=== PATIENT | female | born 1945 | race Caucasian/White ===

== ENCOUNTER → 2017-09-04 | Outpatient (CLI) | payer MEDICARE, BC ==
[~2017-09-04] MED LIST: ADVAIR HFA 230M12 GM INH; ALBUTEROL2.5 MG/31 INH; ASPIR 8181 M1 PO; FLONASE 0.05%50 MCG NASAL; IRON325 PO; LOVASTATIN 20 M20 MG PO; METFORMIN HCL500 MG PO; OMEPRAZOLE 20 M20 M1 PO; OXYGEN MISCELL; PRINIVIL5 MG PO; VENTOLIN HFA 1818 GM INH
--- NOTE | 2017-09-04 14:47 | 2DMMODE ---
[place] [address] 2 D/M-MODE ECHOCARDIOGRAM Name: PATSY WILLARD Room: [facility]#: [id number] Admission: 09/04/17 Attend Phys: Selene Barbosa MD Discharge: Date of : 47 Date of Service: 09/04/17 1447 Report #: [id number] THIS REPORT FOR: //name// APPROVED REPORT Study performed: 09/04/2017 10:07:27 EXAM: Comprehensive 2D, Doppler, and color-flow Echocardiogram Patient Location: Out-Patient Status: routine BSA: 2.05 HR: 96 bpm BP: 115/75 mmHg Other Information Study Quality: Good Indications COPD Dyspnea 2D Dimensions LVEF(%): 74.75 (>50%) IVSd: 6.61 (7-11mm) LVOT Diam: 20.13 (18-24mm) LVDd: 49.53 mm PWd: 10.45 (7-11mm) Ascending Ao: 32.08 (22-36mm) LVDs: 27.87 (25-40mm) Aortic Root: 29.77 mm Kelly's LVEF: 74.75 % Volumes Left Atrial Volume (Systole) LA ESV Index: 25.90 mL/m2 Aortic Valve AoV Peak Fernando.: 1.49 m/s AO Peak Gr.: 8.89 mmHg LVOT Max P.19 mmHg AO Mean Gr.: 5.45 mmHg LVOT Mean P.22 mmHg LVOT Max V: 0.74 m/s AO V2 VTI: 31.94 cm LVOT Mean V: 0.52 m/s TORY (VTI): 1.70 cm2 LVOT V1 VTI: 17.10 cm Mitral Valve E/A Ratio: 0.76 [place] [address] 2 D/M-MODE ECHOCARDIOGRAM Name: PATSY WILLARD Room: [facility]#: [id number] Admission: 09/04/17 Attend Phys: Selene Barbosa MD Discharge: Date of : 47 Date of Service: 09/04/17 1447 Report #: [id number] MV Decel. Time: 256.92 ms MV E Max Fernando.: 0.72 m/s MV PHT: 74.51 ms MVA (PHT): 2.95 cm2 TDI E/Lateral E': 6.00 E/Medial E': 7.20 Medial E' Fernando.: 0.10 m/s Lateral E' Fernando.: 0.12 m/s Pulmonary Valve PV Peak Fernando.: 1.08 m/s PV Peak Gr.: 4.68 mmHg Tricuspid Valve RAP Estimate: 5.00 mmHg TR Peak Gr.: 24.38 mmHg RVSP: 29.38 mmHg PA Pressure: 29.38 mmHg Left Ventricle The left ventricle is normal size. Regional wall motion is not well visualized but grossly normal. Mild concentric left ventricular hypertrophy. Left ventricular systolic function is normal. The left ventricular ejection fraction is within the normal range. LVEF is 50-55%. Grade I - abnormal relaxation pattern. Right Ventricle The right ventricle is normal size. The right ventricular systolic function is normal. Atria The left atrium size is normal. The right atrium size is normal. Aortic Valve Aortic valve leaflets are mildly thickened. Aortic valve is not well visualized. No aortic regurgitation is present. Mild aortic stenosis. Mitral Valve The mitral valve is normal in structure. There is no mitral valve regurgitation noted. No evidence of mitral valve stenosis. Tricuspid Valve The tricuspid valve is normal in structure. Mild [place] [address] 2 D/M-MODE ECHOCARDIOGRAM Name: PATSY WILLARD Room: [facility]#: [id number] Admission: 09/04/17 Attend Phys: Selene Barbosa MD Discharge: Date of : 47 Date of Service: 09/04/17 1447 Report #: [id number] Pulmonic Valve The pulmonary valve is normal in structure. There is no pulmonic valvular regurgitation. Great Vessels The aortic root is normal in size. IVC is normal in size and collapses with >50% inspiration Pericardium There is no pericardial effusion. <Conclusion> The left ventricle is normal size. Mild concentric left ventricular hypertrophy. LVEF is 50-55%. Regional wall motion is not well visualized but grossly normal. Grade I - abnormal relaxation pattern. Aortic valve leaflets are mildly thickened. Mild aortic stenosis. No aortic regurgitation is present. No evidence of mitral valve stenosis. There is no mitral valve regurgitation noted. <ELECTRONICALLY SIGNED> By: Gonzales Machado MD, FACC 09/04/17 1447 1447 1447 Gonzales Machado MD, FACC /INF
== END ==
LOC: M.CRD 09:28
DX: I07.1 Rheumatic tricuspid insufficiency (principal); J44.9 Chronic obstructive pulmonary disease, unspecified; R60.0 Localized edema

== ENCOUNTER → 2017-09-19 | Outpatient (CLI) | payer MEDICARE, BC | LOC: M.ULTRA 09-13 11:11 | DX: J43.9 Emphysema, unspecified (principal); R91.8 Other nonspecific abnormal finding of lung field; L97.528 Non-pressure chronic ulcer of other part of left foot with other specified severity ==

== ENCOUNTER → 2018-08-26 | Outpatient (CLI) | payer MEDICARE, BC | LOC: M.RAD 08-07 13:20 | DX: M81.0 Age-related osteoporosis without current pathological fracture (principal); M85.88 Other specified disorders of bone density and structure, other site; J98.4 Other disorders of lung ==

== ENCOUNTER → 2018-10-31 | Outpatient (CLI) | payer MEDICARE, BC ==
[~2018-10-31] MED LIST changes: +ALEVE220 MG PO; +CALCIUM 600 +1 EAC1 PO; +CYMBALTA30 MG PO; +FOSAMAX 70 MG T70 MG PO; +IBUPROFEN 600600 M1 PO; +TRELEGY ELLIPT1 EACH INH; +VITAMIN D31000 UNIT PO
== END ==
LOC: M.RAD 11:39
DX: J98.4 Other disorders of lung (principal); J41.8 Mixed simple and mucopurulent chronic bronchitis; F17.200 Nicotine dependence, unspecified, uncomplicated

== ENCOUNTER → 2020-04-15 | Outpatient (CLI) | payer MEDICARE, BC | LOC: M.RAD 03-25 16:38 | PROVIDERS: ATTEND Internal Medicine Critical Care Medicine | DX: J44.9 Chronic obstructive pulmonary disease, unspecified (principal); I87.2 Venous insufficiency (chronic) (peripheral) ==

== ENCOUNTER → 2020-05-18 | Outpatient (CLI) | payer MEDICARE, BC ==
--- NOTE | 2020-05-26 12:05 | PF ---
[address] [address] PULMONARY FUNCTION REPORT Name: PATSY WILLARD Room: [facility]#: [id number] Admission: 05/18/20 Attend Phys: Osiel Martinez MD Discharge: Date of : 47 Report #: [id number] THIS REPORT FOR: cc: Selene Barbosa MD, Lin W. MD Pervez, Adeel MD ~ DATE OF SERVICE: 05/18/2020 PULMONARY FUNCTION TEST The FEV1/FVC ratio is markedly decreased to 49% with an FVC decreased to 63% and FEV1 decreased to 41%. The OQB43-90 is also decreased to 16%. After the administration of a bronchodilator, there is a 20% increase in the FVC. Forced vital capacity also increases by 11%. The patient's increase in FEV1 is below criteria for reversibility and forced vital capacity does increase by more than the criteria for reversibility. The patient's post-bronchodilator FEV1 is noted to be 1.00 liters. The patient was unable to transfer from a wheelchair to the body box for lung volumes to be performed. Therefore, these could not be performed. The DLCO as adjusted for hemoglobin, is markedly decreased to 23%. The flow volume loop is concave upwards. IMPRESSION: 1. Severe obstruction, but with evidence of reversibility. 2. Lung volumes could not be performed on account of the patient being in a wheelchair. 3. Marked reduction in DLCO as adjusted for hemoglobin, to only 23%. <ELECTRONICALLY SIGNED> By: Osiel Martinez MD 05/26/20 1205 1313 2037Asatish Martinez MD /nt
== END ==
LOC: M.PUL 04-27 12:30
PROVIDERS: ATTEND Internal Medicine Critical Care Medicine
DX: J98.8 Other specified respiratory disorders (principal); J44.9 Chronic obstructive pulmonary disease, unspecified

== ENCOUNTER 2020-12-25 22:57 | Inpatient (IN) | payer MEDICARE, BC ==
[~2020-12-25] VITALS: Ht 165.1 cm; Wt 123.1 kg
--- NOTE | ~2020-12-25 | EMS ---
[place] [address] EMS Patient Care Report Name: PATSY WILLARD [id number] Admission: 12/25/20 Attend Phys: Discharge: Date of : 47 Report #: [id number] THIS REPORT FOR: //name// Report Transmitted: 12/25/2020 23:35 EMS Care Summary [facility] Incident [id number] @ 12/25/2020 22:13 Incident Location [address] [place] [address] Patient PATSY WILLARD Female, 75 Years 1945 Patient Address [address] [place] [address] Patient History Cancer, Unspecified,Chronic Obstructive Pulmonary Disease (COPD),Diabetes,Gastrointestinal Problems,Anxiety,Hysterectomy,Gallbladder Disease, Patient Allergies No known allergies, Patient Medications Lovastatin, Chief Complaint weakness Disposition Transported No Lights/[place] Dispatch Reason Sick Person Transported To [facility] [place] [address] EMS Patient Care Report Name: PATSY WILLARD Room: [facility] Louann#: [id number] Admission: 12/25/20 Attend Phys: Discharge: Date of : 47 Report #: [id number] Dispatched to a residence for 75y/o female needing help out of her chair and has general weakness. Upon arrival pt. was alert and oriented. Pt. c/o general weakness and decreased fluid intake x1 week and has not been out of her chair for approx. 24 hours. Pt. uses O2 at night but has not for approx. 1 week due to her lift chair being broken and blocking access to her O2. generator. Pt. had soiled herself and hands were dirty. Pt. agreed to be transported to a hospital. En route pt. refused to allow IV attempts. VS were stable throughout transport. Pt. was transported to [place] for emergency services. Initial Vitals @22:50P: 83,R: 18,BP: 143/80,SpO2: 98, @22:39P: 82,R: 18,BP: 150/86,SpO2: 95, @22:28P: 80,R: 18,BP: 143/95,Pain: 0/10,GCS: 15,Glucose: 115,SpO2: 97,Revised Trauma: 12, Impression Generalized Weakness Procedures @22:24 Oxygen FlowRate: 2 Device: Nasal Cannula (NC) Response: UnchangedSucceeded Timeline 22:10,Call Received 22:13,Dispatched 22:15,En Route 22:17,Initial Responder On Scene 22:17,On Scene 22:18,At Patient 22:24,Oxygen FlowRate: 2 Device: Nasal Cannula (NC) Response: UnchangedSucceeded, 22:28,BP: 143/95 M,PULSE: 80,RR: 18 R,SPO2: 97 Ox,ETCO2: ,B,PAIN: 0,GCS: 15, 22:31,Depart Scene 22:39,BP: 150/86 M,PULSE: 82,RR: 18 R,SPO2: 95 Ox,ETCO2: ,BG: ,PAIN: ,GCS: , 22:50,BP: 143/80 M,PULSE: 83,RR: 18 R,SPO2: 98 Ox,ETCO2: ,BG: ,PAIN: ,GCS: , 22:52,At Destination 22:55,Transfer Patient 23:10,Call Closed 23:26,In District Disclaimer v1.1 Copyright 2020 [email or web address] This EMS Care Summary contains data elements [place] [address] EMS Patient Care Report Name: PATSY WILLARD Room: [facility]#: [id number] Admission: 12/25/20 Attend Phys: Discharge: Date of : 47 Report #: [id number] (which may be displayed differently). It is designed to provide pertinent information for the following purposes: continuity of care, clinical quality, and state data reporting. The complete legal record is available to ED staff and administrators of the receiving hospital in [employer] Patient Tracker. All data is provided "as is."
[~2020-12-25 22:57] MED LIST changes: +LISINOPRIL10 MG PO; -PRINIVIL5 MG PO
[2020-12-25 23:02] VITALS: BP 152/67
[2020-12-25 23:32] LABS: ABSOLUTE BASOPHILS 0.1 thou/uL (0.0-0.2); ABSOLUTE EOSINOPHILS 0.2 thou/uL (0.0-0.7); ABSOLUTE MONOCYTES 0.6 thou/uL (0.0-1.2); ABSOLUTE NEUTROPHILS 4.8 thou/uL (1.6-8.1); BASOPHILS 1.1 %; EOSINOPHILS 2.7 %; HEMATOCRIT 34.4 % (37.0-47.0); HEMOGLOBIN 11.1 gm/dL (12.0-15.0); LYMPHOCYTES 15.6 %; MCH 29.8 pg (26.0-34.0); MCHC 32.3 g/dL (28.0-37.0); MCV 92.3 fL (80.0-100.0); MONOCYTES 9.2 %; MPV 7.3 fl. (7.2-11.1); NUCLEATED RBCS 0 /100WBC; PLATELET COUNT* 305 thou/uL (150-400); POLYS 71.4 %; RBC 3.72 mil/uL (4.20-5.00); RDW-CV 14.6 % (10.5-14.5); WBC 6.7 thou/uL (4.0-11.0)
[2020-12-25 23:45] LABS: CALCIUM 8.7 mg/dL (8.5-10.1); CREATININE 0.9 mg/dL (0.6-1.3); POTASSIUM 3.6 mmol/L (3.5-5.1)
[2020-12-25 23:56] LABS: ALBUMIN 2.9 g/dL (3.4-5.0); TOTAL BILIRUBIN 0.3 mg/dL (<0.1-1.0); TOTAL PROTEIN 7.3 g/dL (6.4-8.2)
[2020-12-26 03:43] VITALS: BP 144/47
[2020-12-26 04:15] VITALS: BP 136/75
[2020-12-26 04:17] LABS: URINE BILIRUBIN NEGATIVE (Negative); URINE BLOOD 2+ (Negative); URINE CLARITY CLOUDY; URINE COLOR YELLOW; URINE GLUCOSE-RANDOM NEGATIVE (Negative); URINE KETONES NEGATIVE (Negative); URINE LEUKOCYTES-REFLEX 1+ (Negative); URINE NITRITE-REFLEX NEGATIVE (Negative); URINE PROTEIN 1+ (Negative); URINE SPECIFIC GRAVITY >= 1.030 (1.005-1.030); URINE UROBILINOGEN 0.2 E.U./dl (0.2-1.0)
[2020-12-26 04:18] LABS: BACTERIA-REFLEX >30 Many /HPF (None Seen); CRYSTALS None Seen /LPF (None Seen); FINE GRANULAR CASTS 0-3 Few /LPF (None Seen); HYALINE CASTS 0-3 Few /LPF (None Seen); MUCUS 4-6 Moderate strn/LPF (None Seen); RENAL EPITHELIAL CELLS 0-3 Few /LPF (None Seen); SQUAMOUS 0-3 Few /LPF (0-3); TRANSITIONAL EPITHEL CELL 0-3 Few /LPF (None Seen); URINE WBC-REFLEX >25 Many /HPF (0-5)
--- NOTE | 2020-12-26 07:34 | NUR ---
ASSUMED CARE OF PT APPROX 0400, PT A&OX4, VSS ON 2L O2 NC, IV SALINE LOCKED, UP WITH ASSIST TO BSC, JACQUELINE IN USE. PRN MORPHINE REQUESTED AND GIVEN ORDERED. PT C/O NAUSEA APPROX 1HR FOLLOWING MORPHINE ADMINISTRATION, ZOFRAN GIVEN ORDERED ONETIME DOSE. REPORT GIVEN AND CARE TRANSFERED TO DAY SHIFT NURSE AT APPROX 0725.
--- NOTE | 2020-12-26 12:12 | EKG ---
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
[2020-12-26 14:40] VITALS: BP 127/58
[2020-12-26 14:45] LABS: ABSOLUTE EOSINOPHILS 0.2 thou/uL (0.0-0.7); ABSOLUTE MONOCYTES 0.5 thou/uL (0.0-1.2); ABSOLUTE NEUTROPHILS 3.6 thou/uL (1.6-8.1); BASOPHILS 0.9 %; EOSINOPHILS 2.9 %; HEMATOCRIT 30.2 % (37.0-47.0); HEMOGLOBIN 9.9 gm/dL (12.0-15.0); MCH 30.3 pg (26.0-34.0); MCHC 32.8 g/dL (28.0-37.0); MCV 92.4 fL (80.0-100.0); MONOCYTES 10.2 %; MPV 7.1 fl. (7.2-11.1); NUCLEATED RBCS 0 /100WBC; PLATELET COUNT* 265 thou/uL (150-400); RBC 3.27 mil/uL (4.20-5.00); RDW-CV 14.7 % (10.5-14.5); WBC 5.3 thou/uL (4.0-11.0)
[2020-12-26 14:59] LABS: ALBUMIN 2.3 g/dL (3.4-5.0); CALCIUM 7.9 mg/dL (8.5-10.1); CREATININE 0.9 mg/dL (0.6-1.3); MAGNESIUM 1.8 mg/dL (1.8-2.4); TOTAL BILIRUBIN 0.2 mg/dL (<0.1-1.0); TOTAL PROTEIN 6.2 g/dL (6.4-8.2)
[2020-12-26 20:41] VITALS: BP 123/53
--- NOTE | 2020-12-27 04:14 | NUR ---
PT A&OX4, VSS ON 2L O2 NC, IV SALINE LOCKED, REPOSITIONED Q2H, PUREWICK IN PLACE. PT SLEEPING WELL, WILL CONTINUE TO MONITOR.
[2020-12-27 08:10] VITALS: BP 121/54
[2020-12-27 09:36] LABS: ABSOLUTE EOSINOPHILS 0.2 thou/uL (0.0-0.7); ABSOLUTE LYMPHOCYTES 1.1 thou/uL (0.8-5.3); ABSOLUTE MONOCYTES 0.4 thou/uL (0.0-1.2); ABSOLUTE NEUTROPHILS 3.2 thou/uL (1.6-8.1); EOSINOPHILS 4.1 %; HEMATOCRIT 32.3 % (37.0-47.0); HEMOGLOBIN 10.4 gm/dL (12.0-15.0); LYMPHOCYTES 22.7 %; MCH 29.7 pg (26.0-34.0); MCHC 32.1 g/dL (28.0-37.0); MCV 92.6 fL (80.0-100.0); MONOCYTES 8.5 %; MPV 7.7 fl. (7.2-11.1); NUCLEATED RBCS 0 /100WBC; PLATELET COUNT* 269 thou/uL (150-400); POLYS 63.7 %; RBC 3.49 mil/uL (4.20-5.00); RDW-CV 15.1 % (10.5-14.5)
[2020-12-27 09:45] LABS: ALBUMIN 2.3 g/dL (3.4-5.0); CREATININE 0.7 mg/dL (0.6-1.3); MAGNESIUM 1.9 mg/dL (1.8-2.4); PHOSPHORUS* 3.7 mg/dL (2.5-4.9); POTASSIUM 3.9 mmol/L (3.5-5.1); TOTAL BILIRUBIN 0.3 mg/dL (<0.1-1.0); TOTAL PROTEIN 6.2 g/dL (6.4-8.2)
--- NOTE | 2020-12-27 14:47 | NUR ---
WOUND NURSE: PATIENT SEEN FOR INTEGUMENTARY ASSESSMENT. PATIENT WITH RASH AND ODOR TO BREAST AND ABDOMINAL SKIN FOLDS, BUT NO WOUNDS. PATIENT WITH SMALL PAPULAR LESION ON THE LEFT BUTTOCK. PRESENTS A SHALLOW EROSION 0.3 X 0.3 X 0.1 CM. PARTIALLY EPITHELIALIZED, NO ACTIVE DRAINAGE. LEFT POSTERIOR THIGH WITH SHALLOW EROSION WITH PARTIAL THICKNESS TISSUE LOSS AND MEASURING 0.5 X 0.5 X 0.1 CM. NO ACTIVE DRAINAGE NOTED. PATIENT WITH YEAST ODOR IN ALL FOLDS. PATIENT RECEIVED A COMPLETE BED BATH AND LINEN CHANGE. APPLLIED ANTIPERSPIRANT AND INTERDRY TO SKIN FOLDS. Z-GUARD WAS APPLIED TO BUTTOCK AND POSTERIOR THIGH LESION. PATIENT WAS INSTRUCTED ON CARE WITH GOOD KUNDERSTANDING VERBALIZED.
--- NOTE | 2020-12-27 16:41 | NUR ---
Case Management Assessment CM met with pt to complete assessment. Pt reported she lives alone and relies on her brother (Sylvain Tiwari) to assit with appointments. Pt reproted having no other in-home supports, but did state she has a cleaning service that comes every two weeks. Pt reported she would like to go home, but may be unable to care for herself without her lift chair that is now broken. Pt reported the chair is under warranty, but it may take a month for someone to fix it. Pt reported contacting her brother for occasional ADL asssistance. Pt reported using a walker, cane, and oxygen. Pt denied any history of HH, rehab, or SNF. Provider indicates that pt may need placement upon discharge. CM to continue to follow pt for discharge planning to appropriate facility.
--- NOTE | 2020-12-27 17:35 | NUR ---
PT ON BEDREST. O2 2L NC. PURE WICK IN PLACE. SSI ORDERED. PRN PAIN MEDICATION AND MUSCLE RELAXER GIVEN PER PT REQUESTS FOR LR ABD PAIN. PT SEEN BY WOUND CARE NURSE. SEE NOTE AND MISC ORDERS. GIVEN BED BATH AND INTERDRY PLACED TO FOLDS. ZGUARD TO BOTTOM. VENOUS US NEG FOR DVT. CALL LIGHT IN REACH. FALL PRECAUTIONS IN PLACE.
[2020-12-27 20:00] VITALS: BP 115/55
--- NOTE | 2020-12-28 04:30 | NUR ---
PATIENT HAS REMAINED ALERT AND ORIENTED X 4, RESTING QUIETLY ON HOURLY ROUNDS. TURNED Q2H. Z-GUARD TO BOTTOM WITH 2200 TURN. PURE-WICK BEING UTILIZED WITH ADEQUATE URINE OUTPUT. MEDS PER ORDER. VITAL SIGNS STABLE. FALL PRECAUTIONS IN PLACE. CONTINUE TO MONITOR.
[2020-12-28 05:27] LABS: HEMATOCRIT 29.1 % (37.0-47.0); HEMOGLOBIN 9.5 gm/dL (12.0-15.0); MCH 30.2 pg (26.0-34.0); MCHC 32.8 g/dL (28.0-37.0); RBC 3.16 mil/uL (4.20-5.00); RDW-CV 14.8 % (10.5-14.5); WBC 5.1 thou/uL (4.0-11.0)
[2020-12-28 05:51] LABS: POTASSIUM 3.9 mmol/L (3.5-5.1)
[2020-12-28 06:09] LABS: CALCIUM 8.1 mg/dL (8.5-10.1); CREATININE 0.7 mg/dL (0.6-1.3)
[2020-12-28 07:08] LABS: GLYCOHEMOGLOBIN (HGB A1C) 6.7 % (4.8-5.6)
[2020-12-28 08:05] VITALS: BP 109/56
--- NOTE | 2020-12-28 13:38 | NUR ---
Nutrition: Pt admitted with weaknes. Seen for high BMI. H/o DM, COPD, OBE, HTN, GERD. Eating well on HCO controlled diet, 85-100%. BG 103-122, alb 2.3, prealb 10.3. On insulin. Wt: 271#. Consider mild to low nutrition risk at this time.
--- NOTE | 2020-12-28 15:54 | NUR ---
Case Management Followup CM and providers met to discuss length of stay and discharge. Providers indicated pt not yet medically clear for discharge. CM to continue to follow pt for discharge planning services. Pt agreeable to residential services and PT/OT elauation pending.
[2020-12-28 16:27] VITALS: BP 115/52
--- NOTE | 2020-12-28 17:53 | NUR ---
PATIENT RESTING IN BED. PATIENT HAS COMPLAINTS TO RIGHT SIDE/ABDOMEN, TREATED PARTIALLY WITH OXYCODONE AND FLEXIRIL. PATIENT HAS BEEN TURNED IN BED. PATIENT HAS GOOD APPETITE. PATIENT DENIES ANY NEEDS AT THIS TIME. CALL LIGHT CINDY CLINE. BED ALARM ON.
[2020-12-28 20:45] VITALS: BP 133/58
--- NOTE | 2020-12-29 05:34 | NUR ---
PT SLEPT WELL OVERNIGHT AFTER RECEIVING HS MEDS INCLUDING OXYCODONE FOR CO R HIP/ABD PAIN. PURWICK IN PLACE DRAINING YELLOW URINE. PT TURNED AND REPOSITIONED Q2 HOURS AND PRN.HS ACCUCHECK 156, INSULIN GIVEN WITH SNACK. Z GUARD CREAM APPLIED TO BUTTOCKS ORDERED. INTERDRY FABRIC IN PLACE TO ABD FOLDS. R NECK EJ IV SL FLUSHES WELL. AM LABS. ABLE TO USE CALLLITE AND MAKE NEEDS KNOWN. O2 2L NC. FALL PRECAUTIONS IN PLACE, CALL LITE IN EASY REACH.
[2020-12-29 07:09] LABS: HEMATOCRIT 35.1 % (37.0-47.0); HEMOGLOBIN 10.8 gm/dL (12.0-15.0); MCH 30.2 pg (26.0-34.0); MCHC 30.8 g/dL (28.0-37.0); MPV 7.8 fl. (7.2-11.1); RBC 3.58 mil/uL (4.20-5.00)
[2020-12-29 07:12] LABS: MCV 97.8 fL (80.0-100.0)
[2020-12-29 08:00] VITALS: BP 130/61
[2020-12-29 08:05] LABS: CALCIUM 8.1 mg/dL (8.5-10.1); CREATININE 0.6 mg/dL (0.6-1.3); POTASSIUM 4.6 mmol/L (3.5-5.1)
[2020-12-29 14:00] VITALS: BP 139/73
--- NOTE | 2020-12-29 16:01 | NUR ---
Case Management Followup Consultation with providers indicated pt is not yet medically clear to discharge. Continue plan per physician orders. CM to continue to follow pt for discharge planning.
[2020-12-29 20:20] VITALS: BP 129/69
[2020-12-30 04:08] LABS: HEMATOCRIT 33.2 % (37.0-47.0); HEMOGLOBIN 10.8 gm/dL (12.0-15.0); MCH 29.8 pg (26.0-34.0); MCHC 32.5 g/dL (28.0-37.0); MPV 7.2 fl. (7.2-11.1); RBC 3.63 mil/uL (4.20-5.00); RDW-CV 14.8 % (10.5-14.5); WBC 5.8 thou/uL (4.0-11.0)
[2020-12-30 04:21] LABS: CALCIUM 8.5 mg/dL (8.5-10.1); CREATININE 0.7 mg/dL (0.6-1.3); POTASSIUM 4.8 mmol/L (3.5-5.1)
[2020-12-30 04:35] LABS: MCV 91.6 fL (80.0-100.0)
--- NOTE | 2020-12-30 05:42 | NUR ---
PATIENT HAS SLEPT WELL THROUGHOUT MOST OF THE NIGHT. VSS ON 2L 02 AT NIGHT. MEDICATIONS GIVEN ORDERED AND CHARTED. ASSESSMENT CHARTED. PATIENT HAS NOT BEEN UP DURING THE NIGHT. IV IN RIGHT JUGULAR-SL. QUYNH CARE PERFORMED AND COMPLETE BED CHANGE DONE. PURE WIK IN PLACE WITH YELLOW URINE OUTPUT. FALL PRECAUTIONS IN PLACE AND HOURLY ROUNDS MADE. WILL CONTINUE WITH PLAN OF CARE AND NURSING TO MONITOR.
[2020-12-30 08:20] VITALS: BP 128/54
--- NOTE | 2020-12-30 16:02 | NUR ---
Case Management Followup CM and providers met to discuss length of stay and discharge. Providers indicated pt not yet medically clear for discharge. Pt eligibility for rehab unit being explored. CM to continue to follow pt for discharge planning services.
--- NOTE | 2020-12-30 19:42 | NUR ---
PATIENT RESTING IN BED. PATIENT WORKED WITH PHYSICAL THERAPY THIS AFTERNOON. PATIENT HAS HAD COMPLAINTS OF PAIN TO RIGHT SIDE, LIDOCAINE PATCH APPLIED. PATIENT REPOSITIONED IN BED. PATIENT HAD LUNG SCAN THIS AFTERNOON WITHOUT INCIDENT. PATIENT HAS GOOD APPETITE. PATIENT DENIES ANY NEEDS AT THIS TIME. CALL LIGHT WITHIN REACH. BED ALARM ON.
[2020-12-30 21:00] VITALS: BP 149/52
[2020-12-31 08:00] VITALS: BP 142/64
[2020-12-31 15:50] VITALS: BP 107/59
--- NOTE | 2020-12-31 17:01 | NUR ---
Case Management Followup CM and providers met to discuss length of stay and discharge. Providers indicated pt not eligible for rehab unit. Pt agreeable to be linked to [facility] ([phone]). CM to continue to follow pt for discharge planning services to [facility] for ch[facility] services. Placement pending.
--- NOTE | 2020-12-31 19:15 | NUR ---
ASSUMED CARE OF PT. AROUND 0930. VSS, DENIES PAIN OR DISCOMFORT, AOX4, CALL LIGHT AND PERSONAL BELONGINGS PLACED WITHIN REACH. PT. IN BED, RESTING WITH EYES CLOSED AT THIS TIME.
[2020-12-31 20:30] VITALS: BP 110/53
--- NOTE | 2021-01-01 04:59 | NUR ---
PT A&O X 4. VSS ON RA, 2L BY NC AT NIGHT. MEDS GIVEN ORDERED. SNACKS GIVEN PER PT REQUEST. NO C/O PAIN. PUREWICK IN PLACE. CALL LIGHT WITHIN REACH. WILL CONTINUE TO MONITOR.
[2021-01-01 08:00] VITALS: BP 115/79
[2021-01-01 08:23] VITALS: BP 102/52
[2021-01-01 16:33] VITALS: BP 111/56
--- NOTE | 2021-01-01 17:28 | NUR ---
PATIENT RESTING IN BED. ALERT AND ORIENTED X4. BLOOD SUGARS MONITORED. INSULING GIVEN ORDERED. PUREWICK IN PLACE TO CONTINUOUS SUCTION WITHOUT DIFFICULTIES. EDEMA TO LOWER LEGS. RIGHT E.J. SALINE LOCKED. NO C/O PAIN OR DISCOMFORT. BED IN LOW/LOCKED POSITION. CALL LIGTH WITHIN REACH. ALL QUESTIONS AND CONCERNS ADDRESSED.
[2021-01-01 20:30] VITALS: BP 119/64
--- NOTE | 2021-01-02 01:27 | NUR ---
0015 INCONTINENT OF LARGE AMOUNT OF URINE DESPITE PUREWICK. SKIN CARE DONE, LINENS CHANGED. ALSO C/O DIAPHORESIS. PATIENT A/O X4. BLOOD SUGAR CHECKED AT 0024 AND IT WAS 47. GIVEN 8 OZ OF APPLE JUICE WITH FOUR SUGARS TOTAL. BLOOD SUGAR CHECKED AGAIN AT 0102 AND IT WAS 104. GIVEN CRACKERS AND PEANUT BUTTER FOR FURTHER SNACK. NO OTHER SYMPTOMS NOTED DURING THIS TIME. HOURLY ROUNDS CONTINUE.
--- NOTE | 2021-01-02 05:35 | NUR ---
ASSUMED CARE AT 1930. RESTED IN BED ALL SHIFT, SLEPT MUCH OF NIGHT. SEE OTHER NOTE REGARDING LOW BLOOD SUGAR AND URINARY INCONTINENCE. PUREWICK IN PLACE. ASSISTED WITH TURNS. NO C/O PAIN. O2 2L/NC. HOURLY ROUNDS CONTINUE. BED ALARM ON. CALL LITE IN REACH.
[2021-01-02 08:00] VITALS: BP 126/61
[2021-01-02 15:58] VITALS: BP 97/55
[2021-01-02 19:45] VITALS: BP 114/43
--- NOTE | 2021-01-03 05:12 | NUR ---
PATIENT HAS REMAINED ALERT AND ORIENTED X 4 THROUGHOUT THE SHIFT AND RESTING QUIETLY ON HOURLY ROUNDS. REFUSED TURNS. PUREWICK IN PLACE. VITAL SIGNS STABLE. FALL PRECAUTIONS IN PLACE. CONTINUE TO MONITOR.
[2021-01-03 08:46] VITALS: BP 146/53
[2021-01-03] MEDS ORDERED: LIDOPATCH1 EACH TOP (09:54)
[2021-01-03] MEDS ORDERED: ELIQUIS5 MG PO ×2 (09:54)
[2021-01-03] MEDS ORDERED: PERCOCET PO (09:54)
[2021-01-03] MEDS ORDERED: METFORMIN HCL500 MG PO (09:54)
[2021-01-03] MEDS ORDERED: CEFDINIR300 MG PO (09:54)
[2021-01-03 16:05] VITALS: BP 142/56
--- NOTE | 2021-01-03 18:15 | NUR ---
CM F/U Pt medically clear for discharge to [facility]. Pt accepted by [facility]. Transfer to [facility] pending completion of DA124.
[2021-01-03 19:24] VITALS: BP 124/51
--- NOTE | 2021-01-04 04:06 | NUR ---
PT A&OX4, VSS ON 2L NC, IV SALINE LOCKED, UP WITH ASSIST GB/WALKER. PUREWICK IN USE. NO CO PAIN OR DISCOMFORT. PT SLEEPING WELL, WILL CONTINUE TO MONITOR.
[2021-01-04 08:00] VITALS: BP 104/53
[2021-01-04 09:16] VITALS: BP 104/43
--- NOTE | 2021-01-04 14:46 | NUR ---
PT DISCHARGED TO [facility]. REPORT CALLED TO DAVID/MIHAELA. SALINE LOCK REMOVED WITH HUB INTACT. PT DENBIED PAIN ON DISMISSAL. VSS AFEBRILE.
--- NOTE | 2021-01-04 16:58 | NUR ---
Case Management Followup Pt medically clear for discharge. Pt discharged to [facility] ([address] [place] [address], [place] [address]; [phone]) for skilled care.
== END 2021-01-04 14:43 | DRG 689 ==
LOC: M.ERS 22:57 → M.3W 12-26 02:53 → M.TBA-ER 12-26 02:53 → M.3W 12-26 04:11
PROVIDERS: Emergency Medicine; Internal Medicine; ADMIT Internal Medicine; ATTEND Internal Medicine
DX: N39.0 Urinary tract infection, site not specified (principal); I26.99 Other pulmonary embolism without acute cor pulmonale; Z68.42 Body mass index [BMI] 45.0-49.9, adult; R71.0 Precipitous drop in hematocrit; E66.01 Morbid (severe) obesity due to excess calories; Z20.822 Contact with and (suspected) exposure to COVID-19; E11.9 Type 2 diabetes mellitus without complications; K21.9 Gastro-esophageal reflux disease without esophagitis; J44.9 Chronic obstructive pulmonary disease, unspecified; I10 Essential (primary) hypertension; B96.89 Other specified bacterial agents as the cause of diseases classified elsewhere; R53.81 Other malaise; Z99.81 Dependence on supplemental oxygen; Z23 Encounter for immunization; Z88.8 Allergy status to other drugs, medicaments and biological substances

== ENCOUNTER 2021-03-06 09:59 | Inpatient (IN) | payer OTHER ==
[~2021-03-06] VITALS: Ht 162.6 cm; Wt 122.7 kg
[~2021-03-06 09:59] MED LIST changes: +CEFDINIR300 MG PO; +ELIQUIS5 MG PO; +LIDOPATCH1 EACH TOP; +PERCOCET PO
[2021-03-06 10:51] VITALS: BP 138/60
[2021-03-06 10:55] LABS: URINE BLOOD 3+ (Negative); URINE CLARITY SL CLOUDY; URINE COLOR YELLOW; URINE GLUCOSE-RANDOM NEGATIVE (Negative); URINE KETONES TRACE (Negative); URINE LEUKOCYTES-REFLEX 1+ (Negative); URINE NITRITE-REFLEX NEGATIVE (Negative); URINE PROTEIN 1+ (Negative); URINE SPECIFIC GRAVITY >= 1.030 (1.005-1.030)
[2021-03-06 10:57] LABS: URINE BILIRUBIN 2+ (Negative)
[2021-03-06 10:59] LABS: ICTOTEST (BILI CONFIRMATORY) Positive (Negative)
[2021-03-06 11:08] LABS: ABSOLUTE BASOPHILS 0.1 thou/uL (0.0-0.2); ABSOLUTE LYMPHOCYTES 1.1 thou/uL (0.8-5.3); ABSOLUTE MONOCYTES 0.7 thou/uL (0.0-1.2); ABSOLUTE NEUTROPHILS 5.7 thou/uL (1.6-8.1); BASOPHILS 0.9 %; EOSINOPHILS 0.5 %; HEMATOCRIT 33.3 % (37.0-47.0); HEMOGLOBIN 10.6 gm/dL (12.0-15.0); LYMPHOCYTES 14.3 %; MCH 29.2 pg (26.0-34.0); MCHC 31.8 g/dL (28.0-37.0); MCV 91.7 fL (80.0-100.0); MONOCYTES 9.8 %; MPV 7.5 fl. (7.2-11.1); NUCLEATED RBCS 0 /100WBC; PLATELET COUNT* 348 thou/uL (150-400); POLYS 74.5 %; RBC 3.63 mil/uL (4.20-5.00); RDW-CV 17.1 % (10.5-14.5); WBC 7.6 thou/uL (4.0-11.0)
[2021-03-06 11:08] LABS: CASTS None Seen /LPF (None Seen); SQUAMOUS 4-10 Moderate /LPF (0-3)
[2021-03-06 11:09] LABS: CRYSTALS None Seen /LPF (None Seen); URINE WBC-REFLEX 6-15 Few /HPF (0-5)
[2021-03-06 11:26] LABS: CALCIUM 8.4 mg/dL (8.5-10.1); CREATININE 0.9 mg/dL (0.6-1.3)
[2021-03-06 11:39] LABS: ALBUMIN 2.7 g/dL (3.4-5.0); TOTAL BILIRUBIN 0.6 mg/dL (<0.1-1.0)
[2021-03-06 14:39] LABS: CALCIUM 7.8 mg/dL (8.5-10.1); CREATININE 0.8 mg/dL (0.6-1.3); POTASSIUM 5.3 mmol/L (3.5-5.1)
[2021-03-06 18:35] VITALS: BP 163/52
[2021-03-06 22:30] VITALS: BP 151/52
[2021-03-07] VITALS (8 sets, daily range): BP systolic 104–162; BP diastolic 41–68
--- NOTE | 2021-03-07 13:15 | EKG ---
[place] [address] ELECTROCARDIOGRAM REPORT Name: PATSY WILLARD Room: [place] [address] ADM IN .R.#: [id number] Admission: 03/06/21 Attend Phys: Rodrigo Rice Discharge: Date of : 47 Date of Service: 03/06/21 1106 Report #: [id number] THIS REPORT FOR: //name// [facility] ED Test Date: 2021-03-06 Test Time: 11:06:24 Pat Name: PATSY WILLARD Department: Room: 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
[2021-03-08 01:04] VITALS: BP 102/42
[2021-03-08 06:14] VITALS: BP 119/42
[2021-03-08 08:00] VITALS: BP 93/32
[2021-03-08 13:05] VITALS: BP 124/45
[2021-03-08 17:39] VITALS: BP 128/55
[2021-03-08 20:00] VITALS: BP 134/74
[2021-03-09 02:26] VITALS: BP 122/45
[2021-03-09 06:46] VITALS: BP 123/42
[2021-03-09 08:05] VITALS: BP 125/53
[2021-03-09 11:56] VITALS: BP 114/54
[2021-03-09 16:38] VITALS: BP 119/44
[2021-03-09 20:00] VITALS: BP 113/55
[2021-03-10 02:03] VITALS: BP 126/60
[2021-03-10 06:45] VITALS: BP 115/54
[2021-03-10 08:13] VITALS: BP 140/54
[2021-03-10 14:39] VITALS: BP 123/66
[2021-03-10 18:18] VITALS: BP 151/55
[2021-03-10 20:45] VITALS: BP 135/58
[2021-03-11 03:06] VITALS: BP 102/45
[2021-03-11 08:45] VITALS: BP 98/60
[2021-03-11 12:45] VITALS: BP 101/56
[2021-03-11] MEDS ORDERED: FLEXERIL PO (13:43)
[2021-03-11] MEDS ORDERED: PERCOCET PO (13:43)
== END 2021-03-11 15:18 | DRG 689 ==
LOC: M.ERS 09:59 → M.TBA-ER 12:33 → M.2W 12:33
PROVIDERS: Family Medicine; ADMIT Internal Medicine; ATTEND Internal Medicine
DX: N30.00 Acute cystitis without hematuria (principal); G93.41 Metabolic encephalopathy; R65.11 Systemic inflammatory response syndrome (SIRS) of non-infectious origin with acute organ dysfunction; Z68.42 Body mass index [BMI] 45.0-49.9, adult; Z20.822 Contact with and (suspected) exposure to COVID-19; J44.9 Chronic obstructive pulmonary disease, unspecified; E87.5 Hyperkalemia; B96.1 Klebsiella pneumoniae [K. pneumoniae] as the cause of diseases classified elsewhere; B96.4 Proteus (mirabilis) (morganii) as the cause of diseases classified elsewhere; N18.9 Chronic kidney disease, unspecified; E11.22 Type 2 diabetes mellitus with diabetic chronic kidney disease; I12.9 Hypertensive chronic kidney disease with stage 1 through stage 4 chronic kidney disease, or unspecified chronic kidney disease; L89.90 Pressure ulcer of unspecified site, unspecified stage; B37.9 Candidiasis, unspecified; E66.01 Morbid (severe) obesity due to excess calories; Z90.49 Acquired absence of other specified parts of digestive tract; Z88.8 Allergy status to other drugs, medicaments and biological substances; Z87.891 Personal history of nicotine dependence; Z92.21 Personal history of antineoplastic chemotherapy; Z86.711 Personal history of pulmonary embolism; Z90.710 Acquired absence of both cervix and uterus

== ENCOUNTER 2021-03-22 04:44 | Inpatient (IN) | payer OTHER ==
[~2021-03-22] VITALS: Ht 162.6 cm; Wt 112.5 kg
[~2021-03-22 04:44] MED LIST changes: +FLEXERIL PO
[2021-03-22 04:45] VITALS: BP 108/61
[2021-03-22] MEDS ORDERED: ROCEPHIN 11 GM/1001 IV (05:02)
--- NOTE | 2021-03-22 05:14 | NUR ---
REPORT FROM DANILO AT [facility]. PT HAS UTI, STARTED TO HAVE HALLUCINATIONS YESTERDAY EVENING. PCP ORDERED ROCEPHIN 1 G. AFTER ROCEPHIN GIVEN, PT HAD CHEST PAINS. PT ALSO "HAD LOW SATS".
[2021-03-22 05:35] LABS: ABSOLUTE EOSINOPHILS 0.1 thou/uL (0.0-0.7); ABSOLUTE LYMPHOCYTES 1.1 thou/uL (0.8-5.3); ABSOLUTE MONOCYTES 0.6 thou/uL (0.0-1.2); ABSOLUTE NEUTROPHILS 3.4 thou/uL (1.6-8.1); BASOPHILS 0.4 %; EOSINOPHILS 1.3 %; HEMATOCRIT 30.5 % (37.0-47.0); HEMOGLOBIN 9.8 gm/dL (12.0-15.0); LYMPHOCYTES 20.8 %; MCH 28.8 pg (26.0-34.0); MCHC 32.2 g/dL (28.0-37.0); MCV 89.5 fL (80.0-100.0); MONOCYTES 11.5 %; MPV 6.8 fl. (7.2-11.1); NUCLEATED RBCS 0 /100WBC; PLATELET COUNT* 377 thou/uL (150-400); RBC 3.41 mil/uL (4.20-5.00); WBC 5.1 thou/uL (4.0-11.0)
[2021-03-22 05:52] LABS: CALCIUM 7.7 mg/dL (8.5-10.1); CREATININE 0.7 mg/dL (0.6-1.3); POTASSIUM 4.1 mmol/L (3.5-5.1)
[2021-03-22 05:56] LABS: BE -0.8 mmol/L (-2 to +3); PCO2 42.5 mmHg (35.0-45.0); PO2 94.5 mmHg (75.0-100.0); pH 7.376 (7.340-7.450)
[2021-03-22 05:59] LABS: ALBUMIN 2.2 g/dL (3.4-5.0); TOTAL BILIRUBIN 0.3 mg/dL (<0.1-1.0); TOTAL PROTEIN 6.1 g/dL (6.4-8.2)
[2021-03-22 10:43] VITALS: BP 127/66
[2021-03-22 12:28] LABS: BE -4.8 mmol/L (-2 to +3); PCO2 35.8 mmHg (35.0-45.0); PO2 96.6 mmHg (75.0-100.0); pH 7.364 (7.340-7.450)
[2021-03-22 14:33] VITALS: BP 170/82
--- NOTE | 2021-03-22 15:58 | 2DMMODE ---
[place] [address] 2 D/M-MODE ECHOCARDIOGRAM Name: PATSY WILLARD Room: 170-10 ADM IN [place]#: [id number] Admission: 03/22/21 Attend Phys: Ruy Velez Discharge: Date of : 47 Date of Service: 03/22/21 1557 Report #: [id number] THIS REPORT FOR: cc: Selene Barbosa MD, Lin W. MD Holkins, John M. MD [facility] ~ APPROVED REPORT Study performed: 03/22/2021 14:26:53 EXAM: Comprehensive 2D, Doppler, and color-flow Echocardiogram Patient Location: In-Patient Room #: ER Status: routine BSA: 2.14 HR: 86 bpm BP: 108/61 mmHg Rhythm: NSR Other Information Study Quality: Good Indications ELEVATED BNP 2D Dimensions IVSd: 11.88 (7-11mm) LVOT Diam: 20.20 (18-24mm) LVDd: 45.92 mm PWd: 11.32 (7-11mm) Ascending Ao: 33.28 (22-36mm) LVDs: 24.86 (25-40mm) Aortic Root: 31.44 mm Volumes Left Atrial Volume (Systole) LA ESV Index: 29.60 mL/m2 Aortic Valve AoV Peak Fernando.: 1.88 m/s AO Peak Gr.: 14.17 mmHg LVOT Max P.58 mmHg AO Mean Gr.: 7.56 mmHg LVOT Mean P.93 mmHg LVOT Max V: 1.46 m/s AO V2 VTI: 38.78 cm LVOT Mean V: 0.90 m/s TORY (VTI): 2.82 cm2 LVOT V1 VTI: 34.08 [place] [address] 2 D/M-MODE ECHOCARDIOGRAM Name: PATSY WILLARD Room: [address] IN ..#: [id number] Admission: 03/22/21 Attend Phys: Ruy Velez Discharge: Date of : 47 Date of Service: 03/22/21 1557 Report #: [id number] Mitral Valve E/A Ratio: 0.80 MV Decel. Time: 200.98 ms MV E Max Fernando.: 0.79 m/s MV PHT: 58.28 ms MVA (PHT): 3.77 cm2 TDI E/Lateral E': 7.18 E/Medial E': 6.58 Medial E' Fernando.: 0.12 m/s Lateral E' Fernando.: 0.11 m/s Pulmonary Valve PV Peak Fernando.: 1.30 m/s PV Peak Gr.: 6.75 mmHg Tricuspid Valve RAP Estimate: 10.00 mmHg TR Peak Gr.: 30.25 mmHg RVSP: 40.00 mmHg PA Pressure: 40.00 mmHg Left Ventricle The left ventricle is normal size. There is normal LV segmental wall motion. There is normal left ventricular wall thickness. Left ventricular systolic function is normal. The left ventricular ejection fraction is within the normal range. LVEF is 60-65%. Grade I - abnormal relaxation pattern. Right Ventricle Right ventricle is mildly dilated. The right ventricular systolic function is normal. Atria The left atrium size is normal. Right atrium is mildly dilated. Aortic Valve Mild aortic valve sclerosis. No aortic regurgitation is present. No hemodynamically significant valvular aortic stenosis. Mitral Valve There is mitral annular calcification. Trace mitral regurgitation. No evidence of mitral valve stenosis. Tricuspid Valve The tricuspid valve is normal in structure. Mild tricuspid regurgitation. [place] [address] 2 D/M-MODE ECHOCARDIOGRAM Name: PATSY WILLARD Room: [address] IN [facility]#: [id number] Admission: 03/22/21 Attend Phys: Ruy Velez Discharge: Date of : 47 Date of Service: 03/22/21 1557 Report #: [id number] Pulmonic Valve The pulmonary valve is normal in structure. There is no pulmonic valvular regurgitation. Great Vessels The aortic root is normal in size. IVC is dilated and collapses >50% with inspiration. Pericardium There is no pericardial effusion. <Conclusion> The left ventricle is normal size. There is normal left ventricular wall thickness. Left ventricular systolic function is normal. The left ventricular ejection fraction is within the normal range. LVEF is 60-65%. Grade I - abnormal relaxation pattern. Right ventricle is mildly dilated. The right ventricular systolic function is normal. The left atrium size is normal. Right atrium is mildly dilated. Mild aortic valve sclerosis. No aortic regurgitation is present. No hemodynamically significant valvular aortic stenosis. There is mitral annular calcification. Trace mitral regurgitation. Mild tricuspid regurgitation. Mild pulmonary hypertension. IVC is dilated and collapses >50% with inspiration. There is no pericardial effusion. There is normal LV segmental wall motion. <ELECTRONICALLY SIGNED> By: Brian James MD, FACC 03/22/21 1557 1557 1557 Brian James MD, FACC /INF
[2021-03-22 18:32] VITALS: BP 170/82
[2021-03-22 20:00] VITALS: BP 128/64
[2021-03-23] VITALS: BP 143/65
[2021-03-23 04:00] VITALS: BP 130/64
--- NOTE | 2021-03-23 06:35 | NUR ---
ASSUMED CARE OF PT AFTER REPORT AT 1930. PT A&OX4. FORGETFUL. VSS. PHYSICAL ASSESSMENT COMPLETED AND CHARTED. PT ON O2 AT 4L NC. PT TRACING SR ON TELE. PT WITH HOMAR TO DEPENDENT DRAIN. MAINTAINED ON NPO ORDERED. AWAITING SPEECH EVAL. FLU & MRSA SWAB SENT TO LAB. ABLE TO SLEEP WELL ON BED. FALL PRECAUTIONS IN PLACE. CALL LIGHT WITHIN REACH.
[2021-03-23 08:11] LABS: INFLUENZA A ANTIGEN Negative (Negative); INFLUENZA B ANTIGEN Negative (Negative)
[2021-03-23 08:30] VITALS: BP 131/56
--- NOTE | 2021-03-23 09:44 | EKG ---
[place] [address] ELECTROCARDIOGRAM REPORT Name: PATSY WILLARD Room: [address] ADM IN .R.#: [id number] Admission: 03/22/21 Attend Phys: Ruy Velez Discharge: Date of : 47 Date of Service: 03/22/21 0453 Report #: [id number] THIS REPORT FOR: //name// [facility] ED Test Date: 2021-03-22 Test Time: 04:53:54 Pat Name: PATSY WILLARD Department: Room: [address] Gender: F Garde Manager: : 1945 Requested By: Kriss Stuart Order Number: [id number] MD: Brian James Measurements Intervals [place] Rate: 101 P: 79 MS: 145 QRS: -3 QRSD: 86 T: 52 QT: 346 QTc: 449 Interpretive Statements Sinus tachycardia Low voltage, precordial leads Leftward QRS axis Baseline wander in lead(s) II,III,aVF Compared to ECG 03/06/2021 11:06:24 No significant interval change Electronically Signed On 03-23-2021 9:44:38 ALLERGIST/IMMUNOLOGIST PHYSICIAN by Brian James [email or web address] <ELECTRONICALLY SIGNED> By: Brian James MD, [facility] 03/23/21 0944 2 045 Brian James MD, [facility] /EPI
[2021-03-23 12:34] VITALS: BP 111/31
--- NOTE | 2021-03-23 14:55 | NUR ---
WOUND CARE: PATIENT SEEN FOR CONSULT. BILATERAL HEELS NOTED TO BE BRUISED AND DRY. RECOMMEND HEEL PROTECTON. LEFT LOWER LEG VACULAR ULCER MEASURES 4.0 X 1.5 X 0.2 CM. AREA 50% ESCHAR AND 50% SLOUGH, CLEANSED AND DRESSED PER ORDER. LEFT BUTTOCKS RED AREA WITH 2 OPEN AREAS NOTED ONE PROXIMAL MEASURED 6.0 X 0.5 X 0.2 AND DISTAL AREA MEASURED 3.0 X 0.5 X 0.2. ENTIRE AREA MEASURED CLUSTER FOR DRESSING PURPOSE. AREA CLEANSED AND DRESSED PER ORDER. PATIENT TEACHING COMPLETED ON WOUND HEALING AND PREVENTION. DENIES OTHER NEEDS AT THIS TIME. WILL CONTINUE TO FOLLOW AND ASSIST NEEDED.
[2021-03-23 16:00] VITALS: BP 117/61
--- NOTE | 2021-03-23 17:48 | NUR ---
CM ATTEMPTED TO CONTACT PT AND FAMILY TO COMPLETE ASSESSMENT, BUT CM WAS NOT ABLE TO MAKE CONTACT. CM TO ATTEMPT AGAIN. CM TO FOLLOW FOR DC NEEDS.
[2021-03-23 20:00] VITALS: BP 116/56
--- NOTE | 2021-03-23 21:35 | NUR ---
I ASSUMED CARE OF THE PATIENT AT 0700. SHE IS ALERT AND ORIENTED X4, BUT FORGEETFUL. BED IS IN THE LOW LOCKED POSITION AND CALL LIGHT IS IN REACH. BED ALARM IS ON. PAIN IS DENIED. SHE IS REPOSITIONED EVERY 2 HOURS. DIET IS ADDED AFTER SHE WAS SEEN BY SPEECH. OXYGEN IS TITRATED DOWN. BLOOD GLUCOSE IS MONITORED AND ISOLATION IS MAINTAINED. PERSONAL CELL PHONE WAS CHARGED AT THE NURSING STATION AND RETURNED TO THE PATIENT WITH CORD. SHE WAS PLACED ON A LOW AIR LOSS MATTRESS. WILL CONTINUE TO MONITOR.
[2021-03-24 00:37] VITALS: BP 100/47
[2021-03-24 04:20] LABS: HEMATOCRIT 31.5 % (37.0-47.0); HEMOGLOBIN 9.8 gm/dL (12.0-15.0); MCH 28.3 pg (26.0-34.0); MCHC 31.2 g/dL (28.0-37.0); MCV 90.6 fL (80.0-100.0); MPV 7.2 fl. (7.2-11.1); RBC 3.48 mil/uL (4.20-5.00); RDW-CV 17.6 % (10.5-14.5); WBC 5.6 thou/uL (4.0-11.0)
[2021-03-24 04:50] VITALS: BP 117/55
[2021-03-24 04:53] LABS: ALBUMIN 2.2 g/dL (3.4-5.0); CALCIUM 7.9 mg/dL (8.5-10.1); CREATININE 0.6 mg/dL (0.6-1.3); MAGNESIUM 2.1 mg/dL (1.8-2.4); POTASSIUM 4.5 mmol/L (3.5-5.1); TOTAL BILIRUBIN 0.2 mg/dL (<0.1-1.0); TOTAL PROTEIN 6.2 g/dL (6.4-8.2)
--- NOTE | 2021-03-24 05:12 | NUR ---
ASSUMED CARE OF PT AFETR REPORT AT 1930. PT A&OX4. FORGETFUL. VSS. PHYSICAL ASSESSMENT COMPLETED AND CHARTED. PT ON O2 AT 4L NC. PT TRACING SR ON TELE. PT WITH GRAF TO DEPENDENT DRAIN. DENIES PAIN. FALL PRECAUTIONS IN PLACE. ABLE TO SLEEP WELL ON BED. CALL LIGHT WITHIN REACH.
[2021-03-24 09:45] VITALS: BP 115/80
[2021-03-24 12:29] VITALS: BP 137/65
[2021-03-24] MEDS ORDERED: ADVAIR 250-501 EACH INH (13:49)
[2021-03-24] MEDS ORDERED: DEXAMETHASONE1 MG PO (13:49)
[2021-03-24] MEDS ORDERED: CEFDINIR300 MG PO (13:49)
[2021-03-24] MEDS ORDERED: ELIQUIS5 M1 PO (13:51)
--- NOTE | 2021-03-24 17:25 | NUR ---
CM ASSESSMENT ASSESSMENT COMPLETED WITH ZAIRA BEARD [phone]. PT BROUGHT TO [facility] FROM [facility] ([phone]) AND WILL RETURN AT [place]. PT WORKING WITH [facility] TO ESTABLISH LTC. PT USES CANE, WHEELCHAIR, AND WALKER. PT IS DEP FOR ADLS. PT HAD HH WITH [facility] AT [facility], SNF AT [facility]. PT DC BACK TO [facility] WITH TRANSPORT BY [facility].
== END 2021-03-24 16:45 | DRG 177 ==
LOC: M.ERS 04:44 → M.TBA-ER 07:02 → M.ORTHSURG 18:23
PROVIDERS: Internal Medicine; Personal Emergency Response Attendant; ADMIT Internal Medicine; ATTEND Internal Medicine
PROC: XW033E5 Introduction of Remdesivir Anti-infective into Peripheral Vein, Percutaneous Approach, New Technology Group 5 (ICD-10-PCS; principal; 2021-03-22)
DX: U07.1 COVID-19 (principal); J96.21 Acute and chronic respiratory failure with hypoxia; J12.82 Pneumonia due to coronavirus disease 2019; I26.99 Other pulmonary embolism without acute cor pulmonale; J15.6 Pneumonia due to other Gram-negative bacteria; J44.0 Chronic obstructive pulmonary disease with (acute) lower respiratory infection; I82.409 Acute embolism and thrombosis of unspecified deep veins of unspecified lower extremity; J44.1 Chronic obstructive pulmonary disease with (acute) exacerbation; E11.9 Type 2 diabetes mellitus without complications; L89.150 Pressure ulcer of sacral region, unstageable; D64.9 Anemia, unspecified; Z86.718 Personal history of other venous thrombosis and embolism; Z79.01 Long term (current) use of anticoagulants; Z86.711 Personal history of pulmonary embolism; Z90.49 Acquired absence of other specified parts of digestive tract; Z90.710 Acquired absence of both cervix and uterus; Z92.21 Personal history of antineoplastic chemotherapy; Z88.8 Allergy status to other drugs, medicaments and biological substances

== ENCOUNTER 2021-03-31 11:39 | Inpatient (IN) | payer OTHER ==
[~2021-03-31] VITALS: Ht 162.6 cm; Wt 112.4 kg
[~2021-03-31 11:39] MED LIST changes: +ADVAIR 250-501 EACH INH; +DEXAMETHASONE1 MG PO; +ELIQUIS5 M1 PO; +ROCEPHIN 11 GM/1001 IV
[2021-03-31 11:42] VITALS: BP 100/34
[2021-03-31] MEDS ORDERED: ADVAIR 250-501 EACH INH (11:58)
[2021-03-31] MEDS ORDERED: ELIQUIS5 MG PO (11:59)
[2021-03-31 12:02] LABS: ABSOLUTE BASOPHILS 0.1 thou/uL (0.0-0.2); ABSOLUTE EOSINOPHILS 0.2 thou/uL (0.0-0.7); ABSOLUTE LYMPHOCYTES 0.8 thou/uL (0.8-5.3); ABSOLUTE MONOCYTES 0.9 thou/uL (0.0-1.2); ABSOLUTE NEUTROPHILS 8.1 thou/uL (1.6-8.1); BASOPHILS 0.6 %; EOSINOPHILS 1.9 %; HEMATOCRIT 34.3 % (37.0-47.0); LYMPHOCYTES 8.2 %; MCH 28.8 pg (26.0-34.0); MCHC 32.2 g/dL (28.0-37.0); MCV 89.4 fL (80.0-100.0); MONOCYTES 9.4 %; MPV 7.6 fl. (7.2-11.1); NUCLEATED RBCS 0 /100WBC; PLATELET COUNT* 412 thou/uL (150-400); POLYS 79.9 %; RBC 3.83 mil/uL (4.20-5.00); RDW-CV 16.9 % (10.5-14.5); WBC 10.1 thou/uL (4.0-11.0)
[2021-03-31] MEDS ORDERED: FOSAMAX 70 MG T70 MG PO (12:02)
[2021-03-31] MEDS ORDERED: SUPER THERAVIT1 EACH PO (12:04)
[2021-03-31] MEDS ORDERED: NITROFURANTOIN100 MG PO (12:05)
[2021-03-31] MEDS ORDERED: NYSTATIN100000 UNI SW&SWALLOW (12:08)
[2021-03-31] MEDS ORDERED: TRELEGY ELLIPT1 EACH INH (12:09)
[2021-03-31 12:11] LABS: CALCIUM 8.7 mg/dL (8.5-10.1); CREATININE 1.1 mg/dL (0.6-1.3); POTASSIUM 4.5 mmol/L (3.5-5.1)
[2021-03-31 12:16] LABS: ALBUMIN 2.6 g/dL (3.4-5.0); TOTAL BILIRUBIN 0.4 mg/dL (<0.1-1.0); TOTAL PROTEIN 6.3 g/dL (6.4-8.2)
[2021-03-31 15:12] LABS: URINE BILIRUBIN NEGATIVE (Negative); URINE BLOOD TRACE (Negative); URINE COLOR YELLOW; URINE GLUCOSE-RANDOM NEGATIVE (Negative); URINE KETONES NEGATIVE (Negative); URINE LEUKOCYTES-REFLEX TRACE (Negative); URINE NITRITE-REFLEX NEGATIVE (Negative); URINE PROTEIN NEGATIVE (Negative); URINE UROBILINOGEN 0.2 E.U./dl (0.2-1.0)
[2021-03-31 15:20] LABS: URINE CLARITY HAZY
[2021-03-31 15:24] LABS: BACTERIA-REFLEX None Seen /HPF (None Seen); CASTS None Seen /LPF (None Seen); CRYSTALS None Seen /LPF (None Seen); MUCUS 0-3 Light strn/LPF (None Seen); SQUAMOUS 0-3 Few /LPF (0-3); URINE RBC 0-2 Rare /HPF (0-2); URINE WBC-REFLEX 0-5 Rare /HPF (0-5)
[2021-03-31 20:02] VITALS: BP 116/48
[2021-04-01 04:30] VITALS: BP 83/29
[2021-04-01 08:00] VITALS: BP 98/42
--- NOTE | 2021-04-01 10:31 | NUR ---
Pt came to the ER on 03/31/21 with Chest Pain. Pt was initially observation status but has now switched to inpatient status. Pt came from [facility] ([facility]). Pt reports the plan is for her to return to [facility] for now but that are in the process of transitioning her to paper bundler care. Pt previous lived alone. Pt has a walker, cane, wheelchair, and oxygen through [facility]. Pt has a hx of [facility], [facility], and [facility] for SNF. Will send updated clinicals to [facility]. Pt's brother - Sylvain Tiwari ([phone]) is pt's DPOA. CM to continue to follow for discharge planning.
[2021-04-01 19:13] LABS: ABSOLUTE EOSINOPHILS 0.2 thou/uL (0.0-0.7); ABSOLUTE LYMPHOCYTES 1.3 thou/uL (0.8-5.3); ABSOLUTE MONOCYTES 0.7 thou/uL (0.0-1.2); ABSOLUTE NEUTROPHILS 4.5 thou/uL (1.6-8.1); BASOPHILS 0.5 %; EOSINOPHILS 2.6 %; HEMATOCRIT 28.6 % (37.0-47.0); LYMPHOCYTES 18.9 %; MCH 28.8 pg (26.0-34.0); MCHC 31.5 g/dL (28.0-37.0); MCV 91.5 fL (80.0-100.0); MPV 7.8 fl. (7.2-11.1); NUCLEATED RBCS 0 /100WBC; RBC 3.13 mil/uL (4.20-5.00); RDW-CV 17.5 % (10.5-14.5); WBC 6.7 thou/uL (4.0-11.0)
[2021-04-01 19:21] LABS: CALCIUM 7.6 mg/dL (8.5-10.1); CREATININE 0.9 mg/dL (0.6-1.3); POTASSIUM 4.8 mmol/L (3.5-5.1); TOTAL BILIRUBIN 0.1 mg/dL (<0.1-1.0); TOTAL PROTEIN 5.1 g/dL (6.4-8.2)
[2021-04-01 19:24] LABS: PLATELET COUNT* 276 thou/uL (150-400)
[2021-04-01 22:00] VITALS: BP 90/41
[2021-04-01 22:45] VITALS: BP 90/41
[2021-04-01 23:45] VITALS: BP 107/43
[2021-04-02 04:00] VITALS: BP 103/36
--- NOTE | 2021-04-02 05:39 | NUR ---
ASSUMED CARE AT ABOUT 2330, ADMITTED FROM ER PER BED. IVF INFUSING PER RT AC, IVPB INFUSED. HS MEDS WERE GIVEN PRIOR TO COMING UP. PATIENT FROM [facility]. HAS MULTIPLE WOUNDS ON SACRUM , LEFT BUTTOCKS, LT UPPER THIGH AND BUTTOCK. LT AND RT HEELS BOTH HAVE PRESSURE WOUNDS WITH ESCHAR FORMING. BILAT SHINS HAVE VASCULAR ISSUES WITH THE LT DELGADO OPEN AND DRAINING SEROSANG DRG. LT DELGADO DRESSED WITH ABDS AND ROLLAR GAUZE. MOISTURE BARRIER APPLIED TO BUTTOCKS AND SACRUM WOUNDS UNTIL FURTHER ORDERS. STRONGLY ENCOURAGED HER TO LIE ON RIGHT SIDE, SHE STATES SHE PREFERS LYING ON HER LEFT SIDE AND MOST OF THE WOUNDS ARE ON THE LEFT. SHE DENIES PAIN. HOURLY ROUNDS CONTINUE. BED ALARM ON. CALL LITE IN REACH.
[2021-04-02 05:57] LABS: ABSOLUTE EOSINOPHILS 0.2 thou/uL (0.0-0.7); ABSOLUTE LYMPHOCYTES 1.4 thou/uL (0.8-5.3); ABSOLUTE MONOCYTES 0.7 thou/uL (0.0-1.2); ABSOLUTE NEUTROPHILS 4.3 thou/uL (1.6-8.1); BASOPHILS 0.5 %; HEMATOCRIT 28.4 % (37.0-47.0); HEMOGLOBIN 9.1 gm/dL (12.0-15.0); LYMPHOCYTES 20.5 %; MCH 29.3 pg (26.0-34.0); MCV 91.4 fL (80.0-100.0); MONOCYTES 11.3 %; NUCLEATED RBCS 0 /100WBC; PLATELET COUNT* 273 thou/uL (150-400); POLYS 64.7 %; RBC 3.11 mil/uL (4.20-5.00); RDW-CV 17.3 % (10.5-14.5); WBC 6.6 thou/uL (4.0-11.0)
[2021-04-02 06:17] VITALS: BP 113/37
[2021-04-02 06:45] LABS: CALCIUM 7.7 mg/dL (8.5-10.1); CREATININE 0.7 mg/dL (0.6-1.3); POTASSIUM 4.6 mmol/L (3.5-5.1); TOTAL BILIRUBIN 0.3 mg/dL (<0.1-1.0); TOTAL PROTEIN 5.2 g/dL (6.4-8.2)
[2021-04-02 08:31] VITALS: BP 126/50
[2021-04-02 12:00] VITALS: BP 105/57
[2021-04-02 17:01] VITALS: BP 129/47
--- NOTE | 2021-04-02 18:45 | NUR ---
[place] HEELS CLEANED WITH ABD PAD PLACED AND WRAPPED WITH KERLEX AND SECURED WITH TAPE THIS SHIFT- PREFO BOOTS ORDERED TO BE PLACED- DRESSING NOTED IN PLACE TO LLE WITH NO VISIBLE DRAINAGE NOTED- BUTTOCKS WOUNDS AND INNER LOWER LEFT THIGH CLEANED WITH WOUND WASH SKIN PREP PLACED, THEN EXUDERM AND COVERED WITH SURESITE- COCCYX WOUND CLEANED WITH WOUND WASH WITH FOAM DRESSING PALCED- Q [address] INDICATED- ALL NEEDS MET AT THIS TIME
[2021-04-02 20:00] VITALS: BP 108/63
[2021-04-03] VITALS: BP 125/45
[2021-04-03 03:42] LABS: ABSOLUTE EOSINOPHILS 0.2 thou/uL (0.0-0.7); ABSOLUTE LYMPHOCYTES 1.1 thou/uL (0.8-5.3); ABSOLUTE MONOCYTES 0.7 thou/uL (0.0-1.2); ABSOLUTE NEUTROPHILS 3.9 thou/uL (1.6-8.1); BASOPHILS 0.7 %; EOSINOPHILS 4.1 %; HEMOGLOBIN 9.5 gm/dL (12.0-15.0); LYMPHOCYTES 18.9 %; MCH 28.8 pg (26.0-34.0); MCHC 31.6 g/dL (28.0-37.0); MCV 91.1 fL (80.0-100.0); MONOCYTES 11.1 %; MPV 7.8 fl. (7.2-11.1); NUCLEATED RBCS 0 /100WBC; PLATELET COUNT* 248 thou/uL (150-400); POLYS 65.2 %; RBC 3.29 mil/uL (4.20-5.00); RDW-CV 17.4 % (10.5-14.5)
[2021-04-03 03:56] LABS: CALCIUM 7.7 mg/dL (8.5-10.1); CREATININE 0.6 mg/dL (0.6-1.3); POTASSIUM 4.8 mmol/L (3.5-5.1)
[2021-04-03 04:00] VITALS: BP 114/40
[2021-04-03 04:03] LABS: PREALBUMIN 14.3 mg/dL (18.0-35.7)
[2021-04-03 04:19] LABS: TOTAL BILIRUBIN 0.2 mg/dL (<0.1-1.0); TOTAL PROTEIN 5.2 g/dL (6.4-8.2)
--- NOTE | 2021-04-03 05:07 | NUR ---
ASSUMED PT CARE AT 1930. PT ALERT AND ORIENTED X4, POLITE AND COOPERATIVE WITH CARES. IVF INFUSING TO RIGHT AC WITHOUT DIFFICULTY. PUREWICK IN PLACE. BED CHANGE AND PADS CHANGED MULTIPLE TIMES. Q2 TURNS. ALL WOUNDS WITH DRESSINGS IN PLACE. BILAT HEELS, LLE, BUTTOCKS, INNER LOWER LEFT THIGH AND COCCYX. ON MONITOR. CALL LIGHT IN REACH, BED ALARM ON FOR SAFETY. HOURLY ROUNDING IN PROGRESS, WILL CONTINUE TO MONITOR.
[2021-04-03 08:05] VITALS: BP 102/46
[2021-04-03] MEDS ORDERED: MIDODRINE HCL 55 M1 PO (08:11)
[2021-04-03] MEDS ORDERED: DOXYCYCLINE 10100 MG PO (08:17)
[2021-04-03 11:33] VITALS: BP 117/39
[2021-04-03 16:00] VITALS: BP 120/44
[2021-04-03 20:00] VITALS: BP 113/52
[2021-04-04] VITALS: BP 115/61
[2021-04-04 04:00] VITALS: BP 109/50
--- NOTE | 2021-04-04 06:50 | NUR ---
ASSUMED PT CARE AT 1915. NURSING ASSESSMENT COMPLETED. PT DENIES PAIN, SR ON ISSUE CLERK. Q2H REPOSITIONING COMPLETED. HIGH FALL PRECAUTIONS IN PLACE. CALL LIGHT WITHIN REACH.
[2021-04-04 08:00] VITALS: BP 120/47
--- NOTE | 2021-04-04 11:09 | EKG ---
[place] [address] ELECTROCARDIOGRAM REPORT Name: PATSY WILLARD Room: [address] ADM IN .R.#: [id number] Admission: 03/31/21 Attend Phys: Belle [place], Discharge: Date of : 47 Date of Service: 03/31/21 1139 Report #: [id number] THIS REPORT FOR: //name// [facility] ED Test Date: 2021-03-31 Test Time: 11:39:01 Pat Name: PATSY WILLARD Department: Room: [facility] Gender: F Well Testing Operator: : 1945 Requested By: Cathi Brasher Order Number: [id number] MD: Brian James Measurements Intervals [place] Rate: 73 P: 58 PA: 137 QRS: -19 QRSD: 88 T: 57 QT: 380 QTc: 419 Interpretive Statements Sinus rhythm Borderline left axis deviation Low voltage, precordial leads Compared to ECG 03/22/2021 04:53:54 Sinus tachycardia no longer present Electronically Signed On 04-04-2021 11:09:15 FOOD PACKER by Brian James [email or web address] <ELECTRONICALLY SIGNED> By: Brian James MD, FAC 04/04/21 1109 1139 1139 Brian James MD, FAC /EPI
[2021-04-04 12:05] VITALS: BP 121/46
--- NOTE | 2021-04-04 12:30 | NUR ---
PHAN SPK WITH [facility] @ [facility], THEY'RE ACCEPTING PT BACK TO SNF TODAY. CM FAXED UPDATED CLINICALS [phone]. US TO MAKE CHART COPY. RN PROVIDED NUMBER TO CALL REPORT, . PT NOTIFIED OF TRANSFER AND IS AGREEABLE TO PLAN. CM NOTIFIED PT'S CONTACT, BROTHER, ZAIRA. [facility] ARRANGING TRANSPORTATION.
--- NOTE | 2021-04-04 16:55 | NUR ---
WOUND CAREA: PATIENT SEEN TO ADDRESS LEFT LOWER LEG WOUND. AREA CLEANSED WITH SOAP ADN WATER AND PAT DRY. APPLY AQUACEL AG AND SECURE WITH BORDER FOAM. PATIENT DENIES PAIN TO THE AREA. ALSO CHECKED BUTTOCKS AND NO OPEN AREAS NOTED AT THIS TIME. PATIENT DENIES OTHER NEEDS. EDUCATION COMPLETED ON WOUND HEALING AND PREVENTION.
--- NOTE | 2021-04-04 16:58 | NUR ---
PT A&OX4. PT IV SUCCESSFULLY REMOVED WELL TELE MONITOR. REPORT CALLED TO DICK NURSE AT [facility]. PT HAS POSSESSION OF ALL BELONGINGS SHE WAS ADMITTED WITH. PT WHEELED OFF UNIT AT 1655 VIA TRANSPORT.
== END 2021-04-04 17:00 | DRG 177 ==
LOC: M.ERS 11:39 → M.TBA-ER 16:05 → M.2W 04-01 23:46
PROVIDERS: Internal Medicine; Physician Assistant; ADMIT Internal Medicine; ATTEND Internal Medicine
DX: J15.6 Pneumonia due to other Gram-negative bacteria (principal); E43 Unspecified severe protein-calorie malnutrition; J44.0 Chronic obstructive pulmonary disease with (acute) lower respiratory infection; Z68.42 Body mass index [BMI] 45.0-49.9, adult; L03.119 Cellulitis of unspecified part of limb; I95.9 Hypotension, unspecified; I10 Essential (primary) hypertension; I87.2 Venous insufficiency (chronic) (peripheral); M25.519 Pain in unspecified shoulder; S30.91XA Unspecified superficial injury of lower back and pelvis, initial encounter; R07.89 Other chest pain; E11.21 Type 2 diabetes mellitus with diabetic nephropathy; D64.9 Anemia, unspecified; R80.9 Proteinuria, unspecified; Z20.822 Contact with and (suspected) exposure to COVID-19; Z86.711 Personal history of pulmonary embolism; Z86.718 Personal history of other venous thrombosis and embolism; Z79.899 Other long term (current) drug therapy; Z90.710 Acquired absence of both cervix and uterus; Z91.018 Allergy to other foods; Z92.21 Personal history of antineoplastic chemotherapy; Z90.49 Acquired absence of other specified parts of digestive tract; Z85.41 Personal history of malignant neoplasm of cervix uteri; Z98.84 Bariatric surgery status; Z87.891 Personal history of nicotine dependence; Z79.01 Long term (current) use of anticoagulants; Z79.51 Long term (current) use of inhaled steroids; Z86.16 Personal history of COVID-19; Z87.01 Personal history of pneumonia (recurrent); Y93.89 Activity, other specified; Y92.89 Other specified places as the place of occurrence of the external cause; Y99.8 Other external cause status; Z74.01 Bed confinement status